=== PATIENT | male | born 1980 ===

== ENCOUNTER 2020-03-13 11:51 | Observation (INO) | payer SELFPAY ==
[~2020-03-13] VITALS: Ht 177.8 cm; Wt 77.1 kg
[2020-03-13 13:24] LABS: BASOPHILS ABSOLUTE AUTO 0.02 K/mm3 (0.00-0.23); BASOPHILS PERCENT AUTO 0 % (0-2); EOSINOPHILS PERCENT AUTO 0 % (0-6); Hematocrit 39.6 % (37.0-53.0); IMMATURE GRAN ABSOLUTE AUTO 0.01 K/mm3 (0.00-0.10); IMMATURE GRAN PERCENT AUTO 0 % (0-1); LYMPHOCYTES ABSOLUTE AUTO 1.07 K/mm3 (0.84-5.20); LYMPHOCYTES PERCENT AUTO 18 % (21-46); MONOCYTES PERCENT AUTO 13 % (4-13); Mean Corpuscular HGB 31.3 pg (26.0-34.0); Mean Corpuscular HGB Conc 32.8 g/dL (31.5-36.5); Mean Corpuscular Volume 95 fL (80-100); Mean Platelet Volume 10.2 fL (9.1-12.4); NEUTROPHILS PERCENT AUTO 69 % (41-73); Platelet Count 234 K/mm3 (150-400); RDW Coefficient Variation 12.7 % (11.7-14.2); RDW Standard Deviation 44.8 fL (35.1-46.3); Red Blood Cell Count 4.16 M/mm3 (4.30-5.90)
[2020-03-13 13:52] LABS: Alanine Aminotransfer (ALT/SGP 179 U/L (12-78); Albumin, Blood 4.2 g/dL (3.4-5.0); Albumin/Globulin Ratio 0.8 (0.8-1.8); Alk Phos 96 U/L (50-136); Anion Gap 7 mmol/L (6-16); Aspartate Aminotrans (AST/SGOT 142 U/L (12-37); Bilirubin, Total 0.7 mg/dL (0.1-1.0); Blood Urea Nitrogen 27 mg/dL (8-24); Bun/Creatinine Ratio 36.1 (12.0-20.0); CO2, Blood 26 mmol/L (21-32); Calcium, Blood 9.5 mg/dL (8.5-10.1); Chloride, Blood 104 mmol/L (98-108); Creatinine, Blood 0.75 mg/dL (0.60-1.20); Ethanol (Alcohol), Blood, Med <3 mg/dL; Glomerular Filtration Rate >60 (60-); Glucose, Blood 109 mg/dL (70-99); Potassium, Blood 4.4 mmol/L (3.5-5.5); Salicylate <1.7 mg/dL (2.8-20.0); Sodium, Blood 137 mmol/L (136-145); Thyroxine (T4) 15.8 ug/dL (4.5-12.1); Total Protein, Blood 9.2 g/dL (6.4-8.2)
[2020-03-13 14:00] LABS: Acetaminophen, Random <2.0 ug/mL (10.0-30.0)
[2020-03-13] MEDS ORDERED: ARIP10 PO (20:26)
[2020-03-13] MEDS ORDERED: LORA.5 PO (20:26)
[2020-03-13] MEDS ORDERED: HYDPAM25 PO (20:27)
[2020-03-13] MEDS ORDERED: BUPROPION XL150 M1 PO (20:28)
[2020-03-13] MEDS ORDERED: TRAZ50 PO (20:28)
[2020-03-13] MEDS ORDERED: SERT50 PO (20:29)
[2020-03-14 10:34] LABS: Source, Urine Clean Catch
[2020-03-14 10:40] LABS: Bilirubin, Urine Neg (Neg); Blood, Urine Neg (Neg); Glucose Qualitative, Urine Neg (Neg); Ketones, Urine Neg (Neg); Leukocyte Esterase, Urine Neg (Neg); Nitrite, Urine Neg (Neg); Protein, Urine Neg (Neg); Urobilinogen, Urine NORM (Normal)
[2020-03-14 10:47] LABS: Appearance, Urine Clear (Clear); Color, Urine Yellow (P-Yellow)
[2020-03-14 11:00] LABS: U Amphetamine Screen Not Detected; U Barbituate Screen Not Detected; U Benzodiazapine Screen DETECTED; U Buprenorphine Screen Not Detected; U Cannabinoids Screen Not Detected; U Cocaine Screen Not Detected; U Methadone Screen DETECTED; U Methamphetamine Screen Not Detected; U Opiates Screen Not Detected; U Oxycodone Screen Not Detected; U Phencyclidine Screen Not Detected; U Propoxyphene Screen Not Detected
[2020-03-14] MEDS ORDERED: Methadone HCl10 MG PO (14:59)
== END 2020-03-17 15:00 | disposition home or self-care (01) ==
LOC: ER 11:51 → EDBD 11:51 → EOR 11:52 → ER 12:52 → EOR 03-17 15:00
PROVIDERS: Physician Assistant; ADMIT Emergency Medicine
DX: F23 Brief psychotic disorder (principal); R45.851 Suicidal ideations; F10.10 Alcohol abuse, uncomplicated; F15.10 Other stimulant abuse, uncomplicated; F11.10 Opioid abuse, uncomplicated
CPT/HCPCS: 36415; 80053; 81003; 84436; 85025; 96372; 99285-25; G0378; G0480; J1200; J2060; Q0163